=== PATIENT | female | born 1980 | race Caucasian/White ===

== ENCOUNTER → 2020-04-24 | Outpatient (CLI) | payer OTHER ==
--- NOTE | 2020-04-24 09:56 | KCIC ---
Bilateral digital screening mammograms: Reason for examination: Routine baseline screening. Interpretation was made with the benefit of CAD. The skin and nipples show no abnormalities. No abnormal axillary lymph nodes are seen. The breast parenchyma shows scattered fibroglandular density. (Breast density: Category B.) There are small nodular densities at the 9:30 C and 10:00 C positions of the right breast. The nodule at the 9:30 C position is well-circumscribed and likely represents an intramammary lymph node. The small nodule at the 10:00 C position however is not as well circumscribed. Further evaluation with coned compression views and ultrasound should be considered. There are no other masses, suspicious calcifications or architectural distortions. Impression: Small nodule at the 9:30 C and 10:00 C positions of the right breast. The nodule at the 9:30 C position would be consistent with an intramammary lymph node. The nodule at the 10:00 C position however is not as well circumscribed. Further evaluation with coned compression magnification views and ultrasound is recommended. BI-RADS Category 0: Incomplete. Needs additional imaging evaluation. "Our facility is accredited by the [employer] Mammography [employer]." This patient's information has been entered into a reminder system for the patient to be notified with the results of her examination and a target date for the next mammogram. Electronically signed by: Jannie Mchugh MD (04/24/2020 9:53 AM) [email or web address]
== END | disposition home or self-care (01) ==
LOC: KCIC MAMMO 08:44
PROVIDERS: ATTEND Family Medicine
DX: Z12.31 Encounter for screening mammogram for malignant neoplasm of breast (principal); N63.11 Unspecified lump in the right breast, upper outer quadrant
CPT/HCPCS: 77067

== ENCOUNTER → 2020-05-04 | Outpatient (CLI) | payer OTHER ==
--- NOTE | 2020-05-04 09:49 | RAD ---
CLINICAL INDICATION: DOUG TANNER, who is 40 years of age, presents for further evaluation of a finding noted on her most recent screening mammographic examination. On that examination a nodule was reported within the right breast COMPARISON: Prior mammographic imaging 05/04/2020 TECHNIQUE: Diagnostic views of the right breast were obtained, utilizing digital technique. BREAST COMPOSITION: The breasts are predominantly fatty. MAMMOGRAM FINDINGS: The previously seen abnormality within the slightly lateral, superior right breast effaces on the spot compression views. The visualized right axilla appears unremarkable. IMPRESSION: 1. No mammographic evidence of malignancy in either breast. RECOMMENDATION: In the absence of new clinical symptoms or change in physical exam, annual screening mammography is recommended BIRADS 1: NEGATIVE Electronically signed by: Ayaan Núñez MD (05/04/2020 9:46 AM) [email or web address]
== END | disposition home or self-care (01) ==
LOC: MAMMO 09:57
PROVIDERS: ATTEND Family Medicine
DX: R92.2 Inconclusive mammogram (principal)
CPT/HCPCS: 77065

== ENCOUNTER → 2021-05-07 | Outpatient (CLI) | payer OTHER ==
--- NOTE | 2021-05-08 08:21 | KCIC ---
Bilateral digital screening mammograms: Reason for examination: Routine screening. Comparison is made to previous study dated 04/24/2020. Interpretation was made with the benefit of CAD. Findings: Breast density: Category B. There are scattered areas of fibroglandular density.. There are no suspicious masses, malignant appearing calcifications or architectural distortions. Impression: No evidence of malignancy. ASSESSMENT: BI-RADS Category 1: Negative. RECOMMENDATION: Routine screening mammograms This patient's information has been entered into a reminder system for the patient to be notified wit h the results of her examination and a target date for the next mammogram. Electronically signed by: Sherrill Haddad MD (05/08/2021 8:18 AM) [email or web address]
== END ==
LOC: KCIC MAMMO 09:38
PROVIDERS: ATTEND Family Medicine
DX: Z12.31 Encounter for screening mammogram for malignant neoplasm of breast (principal)
CPT/HCPCS: 77067